=== PATIENT | male | born 1940 | race Asian ===

== ENCOUNTER 2020-09-12 08:12 | Emergency (ER) | payer OTHER ==
[~2020-09-12] VITALS: Ht 162.6 cm; Wt 61.2 kg
[2020-09-12 08:35] VITALS: BP 95/56
[2020-09-12] MEDS ORDERED: NACL 0.9% 500 ML IV SCH (08:55)
[2020-09-12 09:20] LABS: BASOPHILS % (AUTO) 0.3 % (0.0-2.0); EOSINOPHILS % (AUTO) 0.1 % (0.0-4.0); HEMOGLOBIN 11.3 g/dL (12.0-18.0); LYMPHOCYTES # (AUTO) 0.4 K/uL (2.0-11.5); LYMPHOCYTES % (AUTO) 5.5 % (20.5-51.1); MEAN CORPUSCULAR HEMOGLOBIN 32 pg (27-31); MEAN CORPUSCULAR HGB CONC 34 g/dL (33-37); MEAN CORPUSCULAR VOLUME 92.3 fL (80-94); MONOCYTES # (AUTO) 0.6 K/uL (0.8-1.0); MONOCYTES % (AUTO) 7.3 % (1.7-9.3); NEUTROPHILS % (AUTO) 86.8 % (42.2-75.2); PLATELET COUNT (AUTO) 234 K/uL (140-450); RED BLOOD CELL COUNT(AUTO) 3.57 MIL/uL (4.20-6.10); RED CELL DISTRIBUTION WIDTH 13.1 % (11.6-13.7)
[2020-09-12 09:30] LABS: PROTHROMBIN TIME 10.1 secs (10.8-13.4)
--- NOTE | 2020-09-12 09:54 | NUR ---
79 years old male presents to er by ambulance from home with gen weakness, unable to obtain history, no sob no cp, nausea vomiting. vital stable.
--- NOTE | 2020-09-12 10:08 | NUR ---
PATIENT TAKEN FOR CT SCAN VIA [place] AT THIS TIME
[2020-09-12 10:14] LABS: ANION GAP 13.2 (8-16); CARBON DIOXIDE 26.3 mmol/L (21-32); CHLORIDE 104 mmol/L (98-107); CREATININE 0.9 mg/dL (0.6-1.3); GLUCOSE 145 mg/dL (74-106); POTASSIUM 3.5 mmol/L (3.5-5.1); SODIUM SERUM 140 mmol/L (136-145); UREA NITROGEN, BLOOD 18 mg/dL (7-18)
[2020-09-12 10:32] LABS: ALBUMIN 3.4 g/dL (3.4-5.0); ASPARTATE AMINOTRANSFERASE 51 U/L (15-37); TOTAL BILIRUBIN 0.7 mg/dL (0.0-1.0)
--- NOTE | 2020-09-12 10:58 | NUR ---
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
[2020-09-12] MEDS ORDERED: CLINDAMYCIN 900 MG in DEXTROSE 5% 100 ML IV ONE (11:05)
[2020-09-12] MEDS ORDERED: NACL 0.9% 1,000 ML IV ONE (11:05)
[2020-09-12 12:30] LABS: BILIRUBIN,URINE NEGATIVE (NEGATIVE); BLOOD, URINE 2+ (NEGATIVE); COLOR,URINE YELLOW (YELLOW); LEUKOCYTE ESTERASE ,URINE NEGATIVE (NEGATIVE); NITRITE, URINE NEGATIVE (NEGATIVE); UGLUCOSE NEGATIVE (NEGATIVE)
[2020-09-12 12:31] LABS: APPEARANCE,URINE SLIGHTLY HAZY (CLEAR)
[2020-09-12 12:44] LABS: WBC,URINE 0-5 /HPF (0-5)
[2020-09-12 12:50] LABS: CKMB RELATIVE INDEX 1.2 (0.0-2.5); CREATINE KINASE MB 14.2 ng/mL (0-3.6)
[2020-09-12] MEDS ORDERED: CLINDAMYCIN 900 MG/6 ML VIAL IV ONE (14:51)
[2020-09-12 17:55] VITALS: BP 110/70
--- NOTE | 2020-09-14 10:58 | NUR ---
LATE ENTRY -- NORMAL SALINE INFUSIONS COMPLETED AT 1046 AND 1205, CLEOCIN INFUSION COMPLETED AT 1205
== END 2020-09-12 17:55 | disposition home or self-care (01) ==
LOC: MED 08:12
DX: R41.82 Altered mental status, unspecified (principal)
CPT/HCPCS: 36415; 70450; 70486; 71045; 73130; 80053; 81001; 82550; 82553; 83605; 83874; 83880; 84484; 85025; 85610; 85730; 87040; 87086; 93005; 96361; 96365; 99285; J3490; J7030